=== PATIENT | male | born 1985 | race Caucasian/White ===

== ENCOUNTER 2020-12-03 01:49 | Emergency (ER) | payer OTHER ==
[2020-12-03 02:37] VITALS: BP 116/76; PULSE 65; TEMP 98.3; BMI 36.2
[2020-12-03] MEDS ORDERED: ACETAMINOPHEN 500 MG TABLET (FP) PO ONE (02:44)
[2020-12-03] MEDS ORDERED: DIPHTH,PERTUSS(ACELL),TET 0.5 ML DISP.SYRIN IM ONE ×2 (02:51→03:06)
[2020-12-03] MEDS ORDERED: ACETAMINOPHEN 325 MG TABLET (FP) ONE (03:06)
== END 2020-12-03 04:54 | disposition home or self-care (01) ==
LOC: JER 01:49
PROC: 0HQ1XZZ Repair Face Skin, External Approach (ICD-10-PCS; principal; 2020-12-03)
PROC: 3E0234Z Introduction of Serum, Toxoid and Vaccine into Muscle, Percutaneous Approach (ICD-10-PCS; principal; 2020-12-03)
DX: S01.81XA Laceration without foreign body of other part of head, initial encounter (principal); Y00.XXXA Assault by blunt object, initial encounter
CPT/HCPCS: 12013; 70450-TC; 90471; 90715; 99283-25